=== PATIENT | male | born 1960 | race Caucasian/White ===

== ENCOUNTER 2024-10-04 17:21 | Emergency (ER) | payer BC, SELFPAY ==
[2024-10-04 17:25] VITALS: BP 182/90
[2024-10-04 17:54] LABS: % Basophils 0.7 % (0-2); % Eosinophils 3.1 % (0-6); % Immature Granulocytes 0.3 % (0-0.5); % Lymphocytes 24.5 % (20.5-51.1); % Monocytes 9.2 % (1.7-9.3); % Neutrophils 62.2 % (42.2-75.2); Absolute Basophils 0.1 10^3/uL (0-0.2); Absolute Eosinophils 0.4 10^3/uL (0-0.7); Absolute Lymphocytes 2.9 10^3/uL (1.2-3.4); Absolute Monocytes 1.1 10^3/uL (0.1-0.6); Absolute Neutrophils 7.3 10^3/uL (1.4-6.5); Hematocrit 46.1 % (39.0-52.0); Hemoglobin 15.6 g/dL (13.0-18.0); Mean Corp Hgb Conc. 33.8 g/dL (33.0-37.0); Mean Corpuscular Hgb 30.1 pg (27.0-31.0); Mean Platelet Volume 10.9 fL (7.4-10.4); Nucleated Red Blood Cells % 0 % (-); Platelet Count 249 10^3/uL (130-400); Red Blood Cell Count 5.18 10^6/uL (4.70-6.10); Red Cell Dist. Width 12.2 % (11.5-14.5); White Blood Cell Count 11.7 10^3/uL (4.8-10.8)
[2024-10-04 17:57] LABS: Urine Albumin Trace (Neg - Trace); Urine Bilirubin Negative (Negative); Urine Character Clear (Clear); Urine Color Straw; Urine Glucose Negative (Negative); Urine Ketone Negative (Negative); Urine Leukocyte Negative (Negative); Urine Nitrite Negative (Negative); Urine Occult Blood Negative (Negative); Urine Urobilinogen Negative (Neg - 1+)
[2024-10-04 18:04] LABS: ALT (SGPT) 33 U/L (0-50); AST (SGOT) 27 U/L (17-59); Albumin 4.5 g/dl (3.5-5.0); Alkaline Phosphatase 89 U/L (38-126); Blood Urea Nitrogen 25 mg/dl (9-20); Calcium 9.3 mg/dl (8.4-10.2); Carbon Dioxide 27 mmol/L (22-30); Chloride 102 mmol/L (98-107); Glucose 132 mg/dl (70-99); Potassium 4.3 mmol/L (3.5-5.1); Sodium 139 mmol/L (135-145); Total Bilirubin 0.4 mg/dl (0.2-1.3); Total Protein 7.5 g/dl (6.3-8.2); eGFR > 60.00
--- NOTE | 2024-10-04 18:50 | ED.GENMED ---
History of Present Illness
<Alphonso Hdz MD, Resident - Last Filed: 10/04/24 22:27>
General
Chief Complaint: Back Pain
Source: patient
Exam Limitations: none
Time Seen by Provider: 10/04/24 18:48
Nursing documentation reviewed up to this point in time: agreed with
Travel History
Have you traveled to any high risk areas for coronavirus over the past 14 days?: No
Have you had any contact with someone who has COVID-19?: No
Do you have any symptoms of coronavirus? Fever > 100 degrees, chills, cough, shortness of breath, sore throat, loss of taste or smell, muscle aches, or headache?: No
History of Present Illness
History of Present Illness:
63-year-old male with PMH of hypertension hyperlipidemia, aortic valve replacement presenting today to the emergency department with 10-day history of right flank pain. Patient describes an intermittent stabbing right flank pain that does not
radiate, worse with movement such as standing from a sitting position, standing for long time. Pain is rated 10/10 at its worst but gradually dissipates when patient is not moving. He denies fever, chills, abdominal pain, nausea, vomiting,
diarrhea. He reports intermittent constipation that responds to milk of magnesium. He denies previous abdominal surgeries. He does not drink alcohol or smoke. 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 He denies sadie
hematuria, no history of cancer.
Past History
<Alphonso Hdz MD, Resident - Last Filed: 10/04/24 22:27>
Past History
ED Past Medical History: None
ED Past Surgical History: Cardiac (Aortic valve replacement) and Tonsilectomy
Patient has exhibited threatening behavior?: No
Social History
Tobacco: Non-smoker
Alcohol: Former
Drug: None
Personal:
Living: with family
Employment: Employed
Family History
Family History: CAD
Review of Systems
<Alphonso Hdz MD, Resident - Last Filed: 10/04/24 22:27>
Review of Systems
All Other Systems: ROS reviewed and negative except as documented in HPI and ROS
Phy Exam
<Alphonso Hdz MD, Resident - Last Filed: 10/04/24 22:27>
General Physical Exam
General Presentation: well appearing and no apparent distress
General age: appears stated age
General Skin: warm and dry
General Habitus: normal
General Mental: alert
Pulmonary Exam
Pulmonary Exam: lungs clear, no respiratory distress and no crackles
Gastrointestinal Exam
Gastrointestinal Exam: normal bowel sounds, non tender, soft, no organomegaly, non distended and no cva tenderness
Neurological Exam
Neurological Exam: alert and oriented x3
Course
<Alphonso Hdz MD, Resident - Last Filed: 10/04/24 22:27>
Orders/Labs/Results
Orders:
Orders
10/04/24 17:28
Electrocardiogram (*1) Urgent
Reason for Study: Other
Other Reason for Exam: back pain
EKG- Treatment ONCE
10/04/24 17:41
Complete Blood Count/With Diff Urgent
Comprehensive Metabolic Panel Urgent
10/04/24 17:45
Urinalysis Reflex To Culture Urgent
Date Specimen was Collected: 10/04/24
Time Specimen was Collected: 17:28
10/04/24 19:35
CT Abd/pel Without Iv Or Oral Urgent
Comment:
Reason For Exam: Right flank pain
Acetaminophen [Tylenol] 1,000 mg PO NOW STA
10/04/24 22:14
Cyclobenzaprine HCl [Flexeril] 10 mg PO NOW STA
Abnormal Lab Results
10/04/24
17:41
WBC 11.7 H 10^3/uL
(4.8-10.8)
MPV 10.9 H fL
(7.4-10.4)
Absolute Neuts (auto) 7.3 H 10^3/uL
(1.4-6.5)
Absolute Monos (auto) 1.1 H 10^3/uL
(0.1-0.6)
BUN 25 H mg/dl
(9-20)
Glucose 132 H mg/dl
(70-99)
10/04/24 17:41
10/04/24 17:41
Vital Signs
Initial and Last Documented VS:
Initial Vital Signs
Temp Pulse Resp BP Pulse Ox
99.1 F 78 16 182/90 98
10/04/24 17:25 10/04/24 17:25 10/04/24 17:25 10/04/24 17:25 10/04/24 17:25
Last Documented Vital Signs
Temp Pulse Resp BP Pulse Ox
99.1 F 54 13 170/91 94
10/04/24 17:25 10/04/24 21:30 10/04/24 21:30 10/04/24 21:00 10/04/24 21:30
<Damon Gaines, DO - Last Filed: 10/04/24 19:52>
Orders/Labs/Results
Orders:
Orders
10/04/24 17:28
Electrocardiogram (*1) Urgent
Reason for Study: Other
Other Reason for Exam: back pain
EKG- Treatment ONCE
10/04/24 17:41
Complete Blood Count/With Diff Urgent
Comprehensive Metabolic Panel Urgent
10/04/24 17:45
Urinalysis Reflex To Culture Urgent
Date Specimen was Collected: 10/04/24
Time Specimen was Collected: 17:28
10/04/24 19:35
CT Abd/pel Without Iv Or Oral Urgent
Comment:
Reason For Exam: Right flank pain
Acetaminophen [Tylenol] 1,000 mg PO NOW STA
10/04/24 22:14
Cyclobenzaprine HCl [Flexeril] 10 mg PO NOW STA
Abnormal Lab Results
10/04/24
17:41
WBC 11.7 H 10^3/uL
(4.8-10.8)
MPV 10.9 H fL
(7.4-10.4)
Absolute Neuts (auto) 7.3 H 10^3/uL
(1.4-6.5)
Absolute Monos (auto) 1.1 H 10^3/uL
(0.1-0.6)
BUN 25 H mg/dl
(9-20)
Glucose 132 H mg/dl
(70-99)
10/04/24 17:41
10/04/24 17:41
Vital Signs
Initial and Last Documented VS:
Initial Vital Signs
Temp Pulse Resp BP Pulse Ox
99.1 F 78 16 182/90 98
10/04/24 17:25 10/04/24 17:25 10/04/24 17:25 10/04/24 17:25 10/04/24 17:25
Last Documented Vital Signs
Temp Pulse Resp BP Pulse Ox
99.1 F 54 13 170/91 94
10/04/24 17:25 10/04/24 21:30 10/04/24 21:30 10/04/24 21:00 10/04/24 21:30
<Alphonso Hdz MD, Resident - Last Filed: 10/04/24 22:27>
MDM/Problems Addressed
MDM/Problems Addressed:
63-year-old male with PMH of severe aortic stenosis s/p aortic valve replacement, hyperlipidemia who presented to the emergency department with intermittent, stabbing, nonradiating right flank pain that worsened with movement. Differential
diagnosis include musculoskeletal injury. Nephrolithiasis is less likely given no underlying nausea, vomiting, flank pain. Patient does not smoke and his history and physical exam makes AAA less likely. His labs were remarkable for mild
leukocytosis with WBC count 11.7, creatinine 1.3. Urinalysis was unremarkable. We will get a noncontrast CT scan of abdomen and pelvis given his history of bilateral renal insufficiency for completeness sake. Will give 1 g of Tylenol and monitor.
<Alphonso Hdz MD, Resident - Last Filed: 10/04/24 22:27>
*Critical Care Note
Total Time (30-74mins, 75-104mins- exclusive of procedures): Not Applicable
<Alphonso Hdz MD, Resident - Last Filed: 10/04/24 22:27>
Update Note
Update Note:
Patient is feeling better, stable for discharge. CT scan of abdomen and pelvis without contrast negative for AAA, negative for flu food, free air, enlarged lymph nodes. Will give a dose of cyclobenzaprine and discharge him on as needed doses to
follow-up with his primary care physician in 2 to 3 days.
ED Attending Note
<Alphonso Hdz MD, Resident - Last Filed: 10/04/24 22:27>
-
Portions of this chart may have been created with voice recognition software.� Occasional wrong word or��sound alike� substitutions may have occurred due to the inherent limitations of voice recognition software.
<Damon Gaines, - Last Filed: 10/04/24 19:52>
ED Attending Note
Patient seen and examined by attending physician: Yes
I performed a history and physical exam of patient and discussed management with resident, I reviewed resident's note and agree with documented findings and plan of care.: Yes
ED Attending Note:
I reviewed and agree with history treatment plan by Alphonso Hdz MD. My exam reveals 62-year-old male no significant distress, complaining of right CVA pain. No significant CVA tenderness. He did complain of pain with range of motion. Lungs
clear, normal S1, S2, no murmurs. Will check CT to rule out kidney stones, possibly musculoskeletal cause. Doubt AAA.
Discharge Plan
Departure
Patient Disposition: Home (Routine Discharge)
Date of Disposition: 10/04/24
Time of Disposition: 22:14
Patient with high blood pressure during this ER visit?: Yes
Condition: Good
Covid-19: Not Applicable
Discharge Problem:
Acute right flank pain, Hypertension
Instructions: Flank Pain ED, BLOOD PRESSURE
Prescriptions:
New
cyclobenzaprine 5 mg tablet
5 mg PO TID PRN (Reason: muscle spasm) Qty: 30 0RF
No Action
Eliquis 5 mg tablet
5 mg PO BID Qty: 180 5RF
diltiazem HCl 240 mg Capsule,Extended Release 24hr
240 mg PO DAILY Qty: 90 5RF
atorvastatin 10 mg Tablet
10 mg PO QPM Qty: 90 5RF
metoprolol succinate 50 mg Tablet Extended Release 24 Hr
50 mg PO DAILY Qty: 90 5RF
Referrals:
Noah Sanders MD [Family Provider] - Follow up in 2-3 days
Activity Restrictions/Additional Instructions:
You came to the ED with right flank pain. Your lab work, urinalysis and CT scan of abdomen and pelvis did not show any significant abnormalities. You have been observed in the ED and is stable for discharge. A prescription for muscle relaxant has
been sent to your pharmacy. Please follow-up with your primary care physician in 2 to 3 days and return to the ED if you start having worsening abdominal pain, nausea, vomiting, bleeding, fever or dizziness.
Interventions
Interventions:
*Risk Screen - Suicide Last Done: 10/04/24 17:27
*General Assessment Last Done: 10/04/24 18:35
*Neglect/Abuse Screening Last Done: 10/04/24 17:27
ED- Fall Risk Assessment Last Done: 10/04/24 18:35
*ED COVID-19 Vaccine History Last Done: 10/04/24 18:35
ED-Musculoskeletal Assessment Last Done: 10/04/24 18:35
Discharge Date and Time
Print Language: AZERI
[2024-10-04 19:14] VITALS: BMI 29.9
[2024-10-04] MEDS: TYLENOL 1000 MG PO (20:12)
[2024-10-04 20:15] VITALS: BP 175/85
[2024-10-04 21:00] VITALS: BP 170/91
[2024-10-04 22:00] VITALS: BP 147/88
[2024-10-04] MEDS: FLEXERIL 10 MG PO (22:22)
[2024-10-04 22:38] VITALS: BP 170/80
== END 2024-10-04 22:42 | disposition home or self-care (01) ==
LOC: EMR 17:21
PROVIDERS: EMERGENCY PHYSICIAN Emergency Medicine; FAMILY PHYSICIAN Family Medicine
DX: R10.9 Unspecified abdominal pain (principal); I10 Essential (primary) hypertension; E78.00 Pure hypercholesterolemia, unspecified; Z82.49 Family history of ischemic heart disease and other diseases of the circulatory system; Z95.2 Presence of prosthetic heart valve
CPT/HCPCS: 99284; 74176; 80053; 81003; 85025; 93005